=== PATIENT | male | born 1945 | race Caucasian/White ===

== ENCOUNTER → 2019-07-31 | Outpatient (CLI) | payer OTHER ==
[2019-07-31 08:52] LABS: URINE BILIRUBIN NEGATIVE (Negative); URINE BLOOD NEGATIVE (Negative); URINE CLARITY CLEAR; URINE COLOR YELLOW; URINE GLUCOSE-RANDOM 2+ (Negative); URINE KETONES NEGATIVE (Negative); URINE LEUKOCYTES NEGATIVE (Negative); URINE NITRITE NEGATIVE (Negative); URINE PROTEIN NEGATIVE (Negative); URINE SPECIFIC GRAVITY <= 1.005 (1.005-1.030); URINE UROBILINOGEN 0.2 E.U./dl (0.2-1.0)
[2019-07-31 09:10] LABS: ALBUMIN 3.9 g/dL (3.4-5.0); CREATININE 1.2 mg/dL (0.6-1.3); POTASSIUM 3.8 mmol/L (3.5-5.1); TOTAL BILIRUBIN 0.4 mg/dL (<0.1-1.0); TOTAL PROTEIN 7.7 g/dL (6.4-8.2)
--- NOTE | 2019-07-31 09:46 | 2DMMODE ---
[place] [address] 2 D/M-MODE ECHOCARDIOGRAM Name: JOHN PEREIRA Room: [facility]#: [id number] Admission: 07/31/19 Attend Phys: Dewey Juan MD Discharge: Date of : 47 Date of Service: 07/31/19 0945 Report #: [id number] THIS REPORT FOR: //name// APPROVED REPORT Study performed: 07/31/2019 08:50:32 EXAM: Comprehensive 2D, Doppler, and color-flow Echocardiogram Patient Location: Out-Patient BSA: 2.37 HR: 88 bpm BP: 118/75 mmHg Other Information Study Quality: Good Indications CAD 2D Dimensions IVSd: 14.31 (7-11mm) LVOT Diam: 20.61 (18-24mm) LVDd: 48.62 mm PWd: 11.33 (7-11mm) Ascending Ao: 30.39 (22-36mm) LVDs: 31.67 (25-40mm) Aortic Root: 31.52 mm Volumes Left Atrial Volume (Systole) LA ESV Index: 14.90 mL/m2 Aortic Valve AoV Peak Erick.: 3.38 m/s AO Peak Gr.: 45.81 mmHg LVOT Max P.58 mmHg AO Mean Gr.: 27.82 mmHg LVOT Mean P.73 mmHg LVOT Max V: 0.95 m/s AO V2 VTI: 71.21 cm LVOT Mean V: 0.60 m/s PORTIA (VTI): 0.88 cm2 LVOT V1 VTI: 18.79 cm Mitral Valve E/A Ratio: 0.68 MV Decel. Time: 339.80 ms MV E Max Erick.: 0.53 m/s MV PHT: 98.54 ms MVA (PHT): 2.23 [place]2 [place] [address] 2 D/M-MODE ECHOCARDIOGRAM Name: JOHN PEREIRA Room: [facility]#: [id number] Admission: 07/31/19 Attend Phys: Dewey Juan MD Discharge: Date of : 47 Date of Service: 07/31/19 0945 Report #: [id number] TDI E/Lateral E': 5.89 E/Medial E': 7.57 Medial E' Erick.: 0.07 m/s Lateral E' Erick.: 0.09 m/s Pulmonary Valve PV Peak Erick.: 1.01 m/s PV Peak Gr.: 4.09 mmHg Left Ventricle The left ventricle is normal size. There is normal LV segmental wall motion. Mild concentric left ventricular hypertrophy. Left ventricular systolic function is normal. The left ventricular ejection fraction is within the normal range. LVEF is 55-60%. Grade I - abnormal relaxation pattern. Right Ventricle The right ventricle is normal size. The right ventricular systolic function is normal. Atria The left atrium size is normal. The right atrium size is normal. Aortic Valve Aortic valve is moderately calcified. No aortic regurgitation is present. Moderate aortic stenosis. Mitral Valve The mitral valve is normal in structure. There is no mitral valve regurgitation noted. No evidence of mitral valve stenosis. Tricuspid Valve The tricuspid valve is normal in structure. There is no tricuspid valve regurgitation noted. Pulmonic Valve The pulmonary valve is normal in structure. There is no pulmonic valvular regurgitation. Great Vessels The aortic root is normal in size. IVC is normal in size and collapses >50% with inspiration. Pericardium There [place] [address] 2 D/M-MODE ECHOCARDIOGRAM Name: JOHN PEREIRA Room: [facility]#: [id number] Admission: 07/31/19 Attend Phys: Dewey Juan MD Discharge: Date of : 47 Date of Service: 07/31/19944 Report #: [id number] <Conclusion> Mild concentric left ventricular hypertrophy. LVEF is 55-60%. Moderate aortic stenosis. <ELECTRONICALLY SIGNED> By: Sameer Hawkins MD, [facility] 07/31/1944 Sameer Hawkins MD, FACC /INF
== END ==
LOC: M.CRD 08:17
PROVIDERS: Orthopaedic Surgery
DX: I35.0 Nonrheumatic aortic (valve) stenosis (principal); I25.10 Atherosclerotic heart disease of native coronary artery without angina pectoris; E11.9 Type 2 diabetes mellitus without complications; I51.7 Cardiomegaly